=== PATIENT | male | born 1960 | race Caucasian/White ===

== ENCOUNTER 2018-02-16 10:27 | Day surgery (SDC) | payer BC ==
[2018-01-31 15:31] VITALS: BMI 25.8
[2018-02-16 11:08] VITALS: TEMP 97.6
[2018-02-16] MEDS ORDERED: PROPOFOL 20 ML ONE (12:01)
[2018-02-16 12:55] VITALS: PULSE 71
[2018-02-16 13:15] VITALS: BP 113/70
--- NOTE | 2018-02-21 14:41 | PATH ---
Surgical Pathology Report Patient Name: ESTELLE LEWIS [facility]. Rec. #: [id number] /Age/Gender: 1960 (Age: 57) / M Account: [id number] Location: [facility] Taken: 02/16/2018 Received: 02/16/2018 Reported: 02/21/2018 Physicians: Zeny Mcneil M.D. Specimen(s) Received A: BX DUODENUM 2ND PORTION B: BX ANTRUM C: BX GE JUNCTION Clinical History Functional dyspepsia Postoperative diagnosis: Gastritis, irregular Z line, rule out Teixeira's esophagus Final Diagnosis A. SECOND PORTION OF DUODENUM, BIOPSY: DUODENAL MUCOSA WITH NO PATHOLOGIC FINDINGS. B. ANTRUM, BIOPSY: MILD CHRONIC GASTRITIS. IMMUNOSTAIN IS NEGATIVE FOR H. PYLORI ORGANISMS. C. GE JUNCTION, BIOPSY: COLUMNAR (GASTRIC-TYPE) MUCOSA SHOWING MODERATE CHRONIC INFLAMMATION. NO SQUAMOUS (ESOPHAGEAL) MUCOSA IS IDENTIFIED. NEGATIVE FOR INTESTINAL METAPLASIA. Electronically Signed Joanie Arce M.D. Gross Description A. Received in formalin, labeled "second portion of duodenum" is a new, irregular portion of soft tissue measuring 0.7 cm. in greatest dimension. The specimen is submitted in toto in one cassette. B. Received in formalin, labeled "antrum" is a new, irregular portion of soft tissue measuring 0.6 cm. in greatest dimension. The specimen is submitted in toto in one cassette. C. Received in formalin, labeled "GE junction" are 2 new, irregular portions of soft tissue measuring 0.3 and 0.4 cm. in greatest dimension. The specimens are submitted in toto in one cassette. 02/17/2018 [facility]02/17/2018
== END 2018-02-16 13:12 | disposition home or self-care (01) ==
LOC: FASU-ENDO 10:27
PROVIDERS: ATTEND Internal Medicine Gastroenterology
PROC: 0DB78ZX Excision of Stomach, Pylorus, Via Natural or Artificial Opening Endoscopic, Diagnostic (ICD-10-PCS; 2018-02-16)
PROC: 0DB48ZX Excision of Esophagogastric Junction, Via Natural or Artificial Opening Endoscopic, Diagnostic (ICD-10-PCS; 2018-02-16)
PROC: 0DB98ZX Excision of Duodenum, Via Natural or Artificial Opening Endoscopic, Diagnostic (ICD-10-PCS; principal; 2018-02-16 11:30)
DX: K29.70 Gastritis, unspecified, without bleeding (principal)
CPT/HCPCS: 88305-TC; 88342-TC